=== PATIENT | female | born 1985 | race American Indian/Alaskan Native ===

== ENCOUNTER 2019-01-04 11:13 | Outpatient (CLI) | payer OTHER ==
[2019-01-04 11:31] VITALS: BP 118/74
== END 2019-01-04 13:56 | disposition home or self-care (01) ==
LOC: TRG 11:13
PROVIDERS: ATTEND Obstetrics & Gynecology
DX: O47.03 False labor before 37 completed weeks of gestation, third trimester (principal); Z3A.37 37 weeks gestation of pregnancy

== ENCOUNTER 2019-01-13 05:04 | Inpatient (IN) | payer OTHER ==
[2019-01-13] MEDS ORDERED: LACTATED RINGERS 1,000 ML ONE (06:08)
--- NOTE | 2019-01-13 06:34 | Ultrasound Report ---
PROCEDURE: US OB LIMITED TECHNIQUE: Transabdominal imaging was obtained for a limited OB sonogram for evaluation of pre sentation. HISTORY: twins/labor COMPARISONS: None FINDINGS: There is a twin . Baby A is in cephalic presentation. The heart rate is 130 BPM. Baby B is in cephalic presentation. The heart rate is 138 BPM. IMPRESSION: Twin with both babies in cephalic presentation.. This document is electronically signed by Siva Vasquez MD., January 13 2019 06:33:02 AM ET
[2019-01-13] MEDS ORDERED: AMPICILLIN/NS 2 GM/100 ML 2 GM/100 ML BAG IV ONE (06:42)
[2019-01-13] MEDS ORDERED: XYLOCAINE 2% INFILTRATI ONE ×2 (06:42→08:59)
[2019-01-13] MEDS ORDERED: MINERAL OIL PO PRN ×2 (06:42→22:00)
[2019-01-13] MEDS ORDERED: BRETHINE IVP PRN ×2 (06:42→08:59)
[2019-01-13] MEDS ORDERED: BRETHINE SUB-Q PRN ×2 (06:42→08:59)
[2019-01-13] MEDS ORDERED: SUBLIMAZE IV PRN (06:42)
[2019-01-13] MEDS ORDERED: LACTATED RINGERS 1,000 ML IV SCH (07:00)
[2019-01-13] MEDS ORDERED: PITOCin/NS 20 UNIT/1000ML DRIP 20 UNITS/1,000 ML BAG IV SCH ×3 (07:00→23:00)
[2019-01-13 07:43] LABS: Basophils % (Auto) 0.2 % (0.0-1.8); Eosinophils % (Auto) 0.3 % (0.0-4.3); Hematocrit 37.4 % (30.3-42.9); Hemoglobin 12.8 gm/dl (10.1-14.3); Lymphocytes # (Auto) 1.3 K/mm3 (1.2-5.4); Lymphocytes % (Auto) 12.4 % (13.4-35.0); Mean Corpuscular HGB Conc 34 % (30-34); Mean Corpuscular Volume 88 fl (79-97); Monocytes # (Auto) 0.9 K/mm3 (0.0-0.8); Monocytes % (Auto) 8.6 % (0.0-7.3); Red Blood Count 4.23 M/mm3 (3.65-5.03); Red Cell Distribution Width 16.2 % (13.2-15.2)
[2019-01-13] MEDS: STADOL IV PRN ×2 (07:59→20:23)
[2019-01-13 08:26] LABS: Platelet Count 145 K/mm3 (140-440)
[2019-01-13] MEDS ORDERED: ZOFRAN IV PRN ×2 (08:59→22:18)
--- NOTE | 2019-01-13 08:59 | History and Physical Report ---
History of Present Illness Date of examination: 01/13/19 Chief complaint: Labor History of present illness: Pt is a 33yo BF EDC 01/22/19; EGA 38 5/7 weeks Twin gestation presents to L&D complaining of RUC's q 3-4 mins. She received care at [facility] since 10 weeks and co-managed by [facility] for Di/Di twins. Past History Past Medical History: no pertinent history Past Surgical History: no surgical history Family/Genetic History: none Social history: no significant social history, - Obstetrical History Expected Date of Delivery: 01/22/19 Actual Gestation: 38 Week(s) 5 Day(s) : 4 Medications and Allergies Allergies Allergy/AdvReac Type Severity Reaction Status Date / Time No Known Allergies Allergy Verified 01/04/19 11:17 Home Medications Medication Instructions Recorded Confirmed Last Taken Type valACYclovir [Valtrex] 500 mg PO DAILY 01/13/19 01/13/19 01/12/19 History Active Meds: Active Medications Butorphanol Tartrate (Stadol) 2 mg IV Q2H PRN PRN Reason: Pain , Severe (7-10) Last Admin: 01/13/19 07:59 Dose: 2 mg Documented by: Ephedrine Sulfate (Ephedrine Sulfate) 10 mg IV Q2M PRN PRN Reason: Hypotension Fentanyl (Sublimaze) 100 mcg IV Q2H PRN PRN Reason: Labor Pain Oxytocin/Sodium Chloride (Pitocin/Ns 20 Unit/1000ml Drip) 20 units in 1,000 mls @ 125 mls/hr IV DIRECT LIO Lactated Ringer's (Lactated Ringers) 1,000 mls @ 125 mls/hr IV DIRECT LIO Ampicillin Sodium (Ampicillin/Ns 1 Gm/50 Ml) 1 gm in 50 mls @ 100 mls/hr IV Q4HR LIO; Protocol Mineral Oil (Mineral Oil) 30 ml PO QHS PRN PRN Reason: Constipation Terbutaline Sulfate (Brethine) 0.25 mg SUB-Q ONCE PRN PRN Reason: Hyperstimulation/Hypertonicity Terbutaline Sulfate (Brethine) 0.25 mg IVP ONCE PRN PRN Reason: Hyperstimulation/Hypertonicity Review of Systems All systems: negative - Vital Signs Vital signs: Vital Signs Pulse BP 59 L 121/74 01/13/19 05:28 01/13/19 05:28 Temp Pulse Resp BP Pulse Ox 98.0 F 61 18 118/76 01/13/19 05:30 01/13/19 06:29 01/13/19 05:30 01/13/19 06:29 - Physical Exam Breasts: Positive: deferred Cardiovascular: Regular rate Lungs: Positive: Clear to auscultation Abdomen: Positive: normal appearance Genitourinary (Female): Positive: normal external genitalia Uterus: Positive: enlarged Extremities: Positive: normal - Obstetrical FHR: category 1 Uterine Contraction Monitor Mode: External Cervical Dilatation: 4 (per nurse) Cervical Effacement Percentage: 70 (per nurse) station: -2 Uterine Contraction Pattern: Regular Uterine Tone Measurement Phase: Contraction Uterine Contraction Intensity: Moderate Results Result Diagrams: 01/13/19 06:27 Abnormal lab results 01/13/19 Range/Units 06:27 RDW 16.2 H (13.2-15.2) % Lymph % (Auto) 12.4 L (13.4-35.0) % [place] % (Auto) 8.6 H (0.0-7.3) % [place] # 0.9 H (0.0-0.8) K/mm3 Seg Neutrophils % 78.5 H (40.0-70.0) % Seg Neutrophils # 7.9 H (1.8-7.7) K/mm3 All other labs normal. Assessment and Plan - Patient Problems (1) 38 weeks gestation of Onset Date: 01/13/19 Current Visit: Yes Status: Acute Plan to address problem: A: IUP @ 38 5/7 weeks in labor Twin gestation P: Admit to L&D for expectant vaginal delivery. (2) Dichorionic diamniotic twin gestation Onset Date: 01/13/19 Current Visit: Yes Status: Acute Qualifiers: Trimester: third trimester Qualified Code(s): O30.043 - Twin , dichorionic/diamniotic, third trimester
[2019-01-13] MEDS ORDERED: PITOCin/NS 30 UNIT/500ML 30 UNITS/500 ML BAG IV SCH ×2 (09:00)
[2019-01-13] MEDS: LACTATED RINGERS 1,000 ML IV SCH ×3 (10:00→21:13)
[2019-01-13 10:36] LABS: Hepatitis C Virus Antibody Non-Reactive (NonReactive)
[2019-01-13] MEDS ORDERED: AMPICILLIN/NS 1 GM/50 ML 1 GM/50 ML BAG IV SCH (10:43)
[2019-01-13] MEDS ORDERED: LIDOCAINE 1.5%/EPI 1:200,000 INFILTRATI ONE (21:42)
[2019-01-13] MEDS ORDERED: PHENERGAN PR PRN (22:18)
[2019-01-13] MEDS ORDERED: PHENERGAN PO PRN (22:18)
[2019-01-13] MEDS ORDERED: LANSINOH TP PRN (22:18)
[2019-01-13] MEDS ORDERED: MILK OF MAGNESIA PO PRN (22:18)
[2019-01-13] MEDS ORDERED: DULCOLAX PR PRN (22:18)
[2019-01-13] MEDS ORDERED: TUCKS PAD TP PRN (22:18)
[2019-01-13] MEDS ORDERED: BENADRYL PO PRN (22:18)
[2019-01-13] MEDS ORDERED: TYLENOL PO PRN (22:18)
--- NOTE | 2019-01-13 22:30 | Procedure Note ---
OB Delivery Note - Delivery Date of Delivery: 01/13/19 Surgeon: LIBERTY ALDRICH Estimated blood loss: 300cc - Vaginal Delivery presentation: vertex Delivery position: OA Intrapartum events: none Delivery induction: none Delivery augmentation: rupture of membranes, pitocin Delivery monitor: external FHT, external uterine Route of delivery: Delivery placenta: spontaneous Delivery cord: 3 umbilical vessels Episiotomy: none Delivery laceration: none Anesthesia: intravenous Delivery comments: Twin A - a 2821gm female - delivered OA and placed on Mom's chest for [id number] bonding and delayed cord clamping. Amniotomy performed on Twin B showing clear fluid, and Twin B - 2597gm male - delivered by Low Vacuum due to non- reassuring surveillance, and handed to awaiting Peds/RT in attendance - A at 1 minute: 8 at 5 minutes: 9 Gender: Female (2821gms) B at 1 minute: 4 at 5 minutes: 7 Gender: Male (2597gms)
--- NOTE | 2019-01-13 22:30 | Ultrasound Report ---
PROCEDURE: US OB LIMITED TECHNIQUE: Limited OB ultrasound. Twin A had already been delivered at the time the metalsmith arise from the exam. Therefore, this exam evaluate twin B only HISTORY: presentation COMPARISONS: Ultrasound OB 01/13/2019 at 6:11 AM FINDINGS: LMP 04/17/2018 clinical Age : 38W 5 D LMP EDC 01[birth year]1990 Presentation: Cephalic Activity: Monitored Cardiac motion: 76 BPM using M-mode doppler IMPRESSION: Twin B presentation is cephalic. heart rate is 76 BPM. This document is electronically signed by Flory Farmer MD., January 13 2019 10:28:32 PM ET
[2019-01-13] MEDS ORDERED: SODIUM CHLORIDE FLUSH SYRINGE 10 ML IV PRN (23:00)
[2019-01-14] MEDS: IBUPROFEN PO SCH ×4 (01:57→23:34)
--- NOTE | 2019-01-14 09:00 | Progress Note ---
Assessment and Plan - Patient Problems (1) 38 weeks gestation of Onset Date: 01/13/19 Current Visit: Yes Status: Resolved (2) Dichorionic diamniotic twin gestation Onset Date: 01/13/19 Current Visit: Yes Status: Resolved Qualifiers: Trimester: third trimester Qualified Code(s): O30.043 - Twin , dichorionic/diamniotic, third trimester (3) Twin delivered vaginally Onset Date: 01/14/19 Current Visit: Yes Status: Resolved Plan to address problem: A: S/P x 2 - Doing well Asymptomatic anemia - stable P: May go home tomorrow. Subjective - Subjective Date of service: 01/14/19 Principal diagnosis: s/p - PPD #1 Interval history: Pt is feeling well without complaints. Bleeding improved. Patient reports: appetite normal, voiding normally, pain well controlled, flatus, ambulating normally, no dizzy ambulation, no nauseated Arnold: doing well, nursing well Objective - Vital Signs Latest vital signs: Vital Signs Temp Pulse Resp BP Pulse Ox 01/14/19 01:37 98.6 F 58 L 20 118/70 100 01/14/19 00:33 59 L 137/70 01/14/19 00:18 62 115/69 01/13/19 23:47 64 133/85 01/13/19 23:33 55 L 129/78 01/13/19 23:18 60 126/65 01/13/19 23:03 64 124/71 01/13/19 22:48 206 H 159/81 01/13/19 22:36 61 134/71 01/13/19 22:17 63 125/75 01/13/19 22:16 67 119/75 01/13/19 22:12 150/61 01/13/19 22:09 62 151/76 01/13/19 22:07 62 152/78 01/13/19 22:05 68 169/85 01/13/19 22:03 64 139/92 01/13/19 21:59 61 127/77 01/13/19 21:56 56 L 142/60 01/13/19 21:49 88 179/116 01/13/19 21:01 66 161/84 01/13/19 20:29 54 L 135/82 01/13/19 20:23 18 01/13/19 19:59 60 148/85 01/13/19 19:35 96.7 F L 20 01/13/19 19:30 60 143/67 01/13/19 19:15 58 L 162/79 01/13/19 18:46 58 L 153/91 01/13/19 18:14 53 L 141/76 01/13/19 17:16 67 128/61 01/13/19 16:46 64 122/77 01/13/19 16:14 66 128/77 01/13/19 15:45 61 127/79 01/13/19 15:15 60 111/84 01/13/19 14:44 56 L 122/68 01/13/19 14:14 52 L 115/67 01/13/19 14:02 56 L 114/67 01/13/19 13:45 57 L 130/80 01/13/19 13:14 48 L 135/89 01/13/19 12:44 55 L 129/79 01/13/19 12:14 57 L 139/87 01/13/19 11:45 51 L 149/86 01/13/19 11:14 57 L 120/72 01/13/19 11:01 57 L 139/80 01/13/19 10:01 52 L 133/86 Intake and Output 01/13/19 01/14/19 01/14/19 22:59 06:59 14:59 Intake Total 1102.083 240 Output Total 1800 Balance 1102.083 -1560 Intake: IV 1102.083 Lactated Ringers 1,000 ml 1102.083 @ 125 mls/hr IV DIRECT LIO Rx#:[id number] Oral 240 Output: Urine 1800 Void 1800 Other: Total, Intake Amount 240 Total, Output Amount 800 # Voids Void 2 - Exam Breasts: Present: deferred Cardiovascular: Present: Regular rate Lungs: Present: Clear to auscultation Abdomen: Present: normal appearance Uterus: Present: normal, firm, fundal height below umbilicus Extremities: Present: normal - Labs Labs: Laboratory Tests 01/13/19 01/13/19 01/13/19 06:27 06:27 06:27 WBC 10.1 RBC 4.23 Hgb 12.8 Hct 37.4 MCV 88 MCH 30 MCHC 34 RDW 16.2 H Plt Count 145 Lymph % (Auto) 12.4 L [place] % (Auto) 8.6 H Eos % (Auto) 0.3 Baso % (Auto) 0.2 Lymph # 1.3 [place] # 0.9 H Eos # 0.0 Baso # 0.0 Seg Neutrophils % 78.5 H Seg Neutrophils # 7.9 H RPR Hep Bs Antigen Non-reactive Hepatitis C Antibody Non-reactive HIV 1&2 Antibody Rapid HIV P24 Antigen Rubella IgG Antibody Immune Blood Type Antibody Screen [place]ENCE Antibody Screen 01/13/19 01/13/19 01/13/19 06:27 06:27 06:27 WBC RBC Hgb Hct MCV MCH MCHC RDW Plt Count Lymph % (Auto) [place] % (Auto) Eos % (Auto) Baso % (Auto) Lymph # [place] # Eos # Baso # Seg Neutrophils % Seg Neutrophils # RPR Nonreactive Hep Bs Antigen Hepatitis C Antibody HIV 1&2 Antibody Rapid Non react HIV P24 Antigen Non react Rubella IgG Antibody Blood Type B POSITIVE Antibody Screen TNR [place] Antibody Screen Negative 01/14/19 10:45 WBC RBC Hgb 11.2 Hct 32.6 MCV MCH MCHC RDW Plt Count Lymph % (Auto) [place] % (Auto) Eos % (Auto) Baso % (Auto) Lymph # [place] # Eos # Baso # Seg Neutrophils % Seg Neutrophils # RPR Hep Bs Antigen Hepatitis C Antibody HIV 1&2 Antibody Rapid HIV P24 Antigen Rubella IgG Antibody Blood Type Antibody Screen TERENCE Antibody Screen
[2019-01-14] MEDS: FEOSOL PO SCH ×2 (10:40→23:34)
[2019-01-14] MEDS: COLACE PO SCH ×2 (10:40→23:34)
[2019-01-14] MEDS: PRENATAL VITAMIN PO SCH (10:40)
[2019-01-14 11:21] LABS: Hematocrit 32.6 % (30.3-42.9); Hemoglobin 11.2 gm/dl (10.1-14.3)
[2019-01-14] MEDS: NORCO 5/325 PO PRN ×2 (18:58→23:33)
[2019-01-14] MEDS ORDERED: M-M-R II VACCINE SUB-Q ONE (22:18)
[2019-01-15] MEDS ORDERED: BOOSTRIX IM ONE (06:00)
[2019-01-15] MEDS: IBUPROFEN PO SCH ×2 (06:55→13:10)
--- NOTE | 2019-01-15 12:18 | Discharge Summary ---
Providers - Providers Date of Admission: 01/13/19 09:52 Date of discharge: 01/15/19 Attending physician: LIBERTY ALDRICH Primary care physician: LIBERTY ALDRICH Hospitalization Reason for admission: active labor, IUP at term, other (Twin gestation) Delivery: Episiotomy: none Laceration: none Incision: normal Other procedures: none complications: none Discharge diagnosis: IUP at term delivered [place] baby: twins Hospital course: Pt is a 33yo BF EDC 01/22/19; EGA 38 5/7 weeks Twin gestation presented to L&D in labor and delivered both babies vaginally. course was unremarkable. Condition at discharge: Good Disposition: DC-01 TO HOME OR SELFCARE - Discharge Diagnoses (1) 38 weeks gestation of Status: Resolved (2) Dichorionic diamniotic twin gestation Status: Resolved Qualifiers: Trimester: third trimester Qualified Code(s): O30.043 - Twin , dichorionic/diamniotic, third trimester (3) Twin delivered vaginally Status: Resolved Plan - Discharge Medications Prescriptions: Ferrous Sulfate [Feosol 325 MG tab] 325 mg PO BID #60 tablet Ibuprofen [Motrin 600 MG tab] 600 mg PO Q6HR #30 tablet HYDROcodone/APAP 5-325 [[place] 5-325 mg TAB] 1 each PO Q6H PRN #10 tablet PRN Reason: Pain, Moderate (4-6) Vit-Fe Fumar-FA [ Vitamin] 1 each PO QDAY #30 tablet - Provider Discharge Summary Activity: routine, no sex for 6 weeks, no heavy lifting 4 weeks, no strenuous exercise Diet: routine Instructions: routine Additional instructions: [] Smoking cessation referral if applicable(refer to patient education folder for contact #) [] Refer to [facility] Booklet Call your doctor immediately for: * Fever > 100.5 * Heavy vaginal bleeding ( >1 pad per hour) * Severe persistent headache * Shortness of breath * Reddened, hot, painful area to leg or breast * Drainage or odor from incision. * Keep incision clean and dry at all times and follow doctor's instructions regarding bathing/showering - Follow up plan Follow up: LIBERTY ALDRICH MD [Primary Care Provider] - 6 Weeks
[2019-01-15] MEDS: NORCO 5/325 PO PRN (13:11)
[2019-01-15] MEDS: PRENATAL VITAMIN PO SCH (13:12)
[2019-01-15] MEDS: COLACE PO SCH (13:12)
[2019-01-15] MEDS: FEOSOL PO SCH (13:12)
[2019-01-15 17:07] VITALS: BP 130/76
== END 2019-01-15 19:48 | disposition home or self-care (01) | DRG 775 ==
LOC: TRG 05:04 → LD 09:52 → OB 01-14 01:12
PROVIDERS: ADMIT Obstetrics & Gynecology; ATTEND Obstetrics & Gynecology
PROC: 10D07Z6 Extraction of Products of Conception, Vacuum, Via Natural or Artificial Opening (ICD-10-PCS; principal; 2019-01-13)
PROC: 3E0234Z Introduction of Serum, Toxoid and Vaccine into Muscle, Percutaneous Approach (ICD-10-PCS; 2019-01-14)
DX: O76 Abnormality in fetal heart rate and rhythm complicating labor and delivery (principal); O30.043 Twin pregnancy, dichorionic/diamniotic, third trimester; O99.02 Anemia complicating childbirth; D64.9 Anemia, unspecified; Z3A.38 38 weeks gestation of pregnancy; Z37.2 Twins, both liveborn; Z23 Encounter for immunization
CPT/HCPCS: 36415; 76815; 85014; 85018; 85025; 86592; 86706; 86762; 86803; 86850; 86900; 86901; 87806; 88307; G0378; J0290; J0595; J2590; J7120